=== PATIENT | male | born 1960 | race Caucasian/White ===

== ENCOUNTER 2017-03-23 15:53 | Emergency (ER) | payer OTHER ==
[2017-03-23] MEDS ORDERED: Sodium Chloride 0.9% 10 ML Syringe FLUSH PRN (16:11)
[2017-03-23] MEDS ORDERED: Ondansetron 4 MG/2 ML SDV IVPUSH ONE (16:11)
[2017-03-23] MEDS ORDERED: Sodium Chloride 0.9% 1,000 ML IV STA (16:11)
[2017-03-23] MEDS ORDERED: HYDROmorphone 0.5 MG/0.5 ML Syringe IVPUSH ONE ×2 (16:14→17:27)
[2017-03-23] MEDS ORDERED: HYDROmorphone 0.5 MG/0.5 ML Syringe ONE (16:38)
[2017-03-23] MEDS ORDERED: Ondansetron 4 MG/2 ML SDV ONE (16:38)
[2017-03-23] MEDS ORDERED: Sodium Chloride 0.9% 1,000 ML ONE (16:38)
--- NOTE | 2017-03-23 16:41 | EDM.PDOC ---
ED HPI GENERAL MEDICAL PROBLEM - General Chief Complaint: Abdominal Pain Stated Complaint: LEFT SIDE ABDOMINAL PAIN Time Seen by Provider: 03/23/17 16:03 Source of Information: Reports: Patient, Family History Limitations: Reports: No Limitations - History of Present Illness INITIAL COMMENTS - FREE TEXT/NARRATIVE: The patient presents with left lower abdominal pain. The patient says he had an episode this weekend and it went away. Today the pain came back at 2pm and it is constant and severe. He has no nausea or vomiting with it. He has no diarrhea, dysuria or hematuria. He has no fever, chills, cough, headache, chest pain or shortness of breath. He has a history of HTN. He still has his gallbladder and appendix. He has a history of kidney stones but this is feels different. Onset: Gradual Duration: Hour(s): (2pm) Location: Reports: Abdomen (Left lower abdomen) Quality: Reports: Sharp Severity: Moderate Improves with: Reports: None Worsens with: Reports: None Associated Symptoms: Reports: No Other Symptoms Left Abdominal Pain Score (Numeric/FACES): 8 - Related Data Allergies Allergy/AdvReac Type Severity Reaction Status Date / Time No Known Allergies Allergy Verified 03/23/17 16:05 Home Meds: Home Meds Montelukast Sodium [Singulair] 10 mg PO BEDTIME 08/14/14 [History] Nebivolol HCl [Bystolic] 10 mg PO DAILY 08/14/14 [History] Multivitamin [Daily Multiple Vitamin] 1 tab PO DAILY 03/23/17 [History] Omeprazole/Sodium Bicarbonate [Zegerid 20 MG] 0 mg PO BEDTIME 03/23/17 [History] Tamsulosin HCl [Flomax] 0.4 mg PO DAILY #10 cap.er.24h 03/23/17 [Rx] oxyCODONE HCl/Acetaminophen [Percocet 5-325 mg Tablet] 1 - 2 each PO Q6HR PRN # 20 tablet 03/23/17 [Rx] Past Medical History Cardiovascular History: Reports: Hypertension Other Respiratory History: seasonal allergies Genitourinary History: Reports: Renal Calculus - Infectious Disease History Infectious Disease History: Reports: Chicken Pox Social & Family History - Tobacco Use Smoking Status *Q: Never Smoker Second Hand Smoke Exposure: No - Caffeine Use Caffeine Use: Reports: Coffee - Recreational Drug Use Recreational Drug Use: No ED ROS GENERAL - Review of Systems Review Of Systems: See Below Constitutional: Reports: No Symptoms HEENT: Reports: No Symptoms Respiratory: Reports: No Symptoms Cardiovascular: Reports: No Symptoms Endocrine: Reports: No Symptoms GI/Abdominal: Reports: Abdominal Pain. Denies: Diarrhea, Nausea, Vomiting : Reports: No Symptoms Musculoskeletal: Reports: No Symptoms Skin: Reports: No Symptoms ED EXAM, GI/ABD - Physical Exam Exam: See Below Exam Limited By: No Limitations General Appearance: Alert, No Apparent Distress Ears: Normal External Exam Nose: Normal Inspection Head: Atraumatic, Normocephalic Neck: Normal Inspection Respiratory/Chest: No Respiratory Distress, Lungs Clear, Normal Breath Sounds Cardiovascular: Regular Rate, Rhythm, No Edema, No Murmur GI/Abdominal Exam: Soft, No Organomegaly, No Mass, Tender (Moderate to the left lower abdomen) Course - Vital Signs Last Recorded V/S: Last Vital Signs Temp 96.3 F 03/23/17 16:00 Pulse 65 03/23/17 17:35 Resp 18 03/23/17 17:35 BP 144/79 H 03/23/17 17:35 Pulse Ox 99 03/23/17 17:35 - Orders/Labs/Meds Orders: Active Orders 24 hr Category Date Time Status Peripheral IV Care [RC] . DIRECTED Care 03/23/17 16:11 Active Sodium Chloride 0.9% [Saline Flush] Med 03/23/17 16:11 Active 10 ml FLUSH ASDIRECTED PRN ED Antiemetic Medication Reflex [OM.PC] Stat Oth 03/23/17 16:11 Ordered Peripheral IV Insertion Adult [OM.PC] Stat Oth 03/23/17 16:11 Ordered Medication Orders Sodium Chloride (Saline Flush) 10 ml FLUSH ASDIRECTED PRN PRN Reason: Keep Vein Open Last Admin: 03/23/17 17:55 Dose: 10 ml Labs: Laboratory Tests 03/23/17 03/23/17 03/23/17 Range/Units 16:55 16:55 18:10 WBC 8.64 (4.23-9.07) K/mm3 RBC 4.47 L (4.63-6.08) M/mm3 Hgb 14.5 (13.7-17.5) gm/L Hct 41.5 (40.1-51.0) % MCV 92.8 H (79.0-92.2) fl MCH 32.4 H (25.7-32.2) pg MCHC 34.9 (32.2-35.5) g/dl RDW Std Deviation 44.9 H (35.1-43.9) fL Plt Count 232 (163-337) K/mm3 MPV 10.4 (9.4-12.3) fl Neut % (Auto) 53.3 (34.0-67.9) % Lymph % (Auto) 30.8 (21.8-53.1) % Cobb % (Auto) 12.2 (5.3-12.2) % Eos % (Auto) 3.2 (0.8-7.0) Baso % (Auto) 0.3 (0.1-1.2) % Neut # (Auto) 4.60 (1.78-5.38) K/mm3 Lymph # (Auto) 2.66 (1.32-3.57) K/mm3 Cobb # (Auto) 1.05 H (0.30-0.82) K/mm3 Eos # (Auto) 0.28 (0.04-0.54) K/mm3 Baso # (Auto) 0.03 (0.01-0.08) K/mm3 Sodium 143 (136-145) mEq/L Potassium 4.0 (3.5-5.1) mEq/L Chloride 106 (98-107) mEq/L Carbon Dioxide 27 (21-32) mEq/L Anion Gap 14.0 (5-15) BUN 22 H (7-18) mg/dL Creatinine 1.4 H (0.7-1.3) mg/dL Est Cr Clr Drug Dosing 65.44 mL/min Estimated GFR (MDRD) 53 (>60) mL/min BUN/Creatinine Ratio 15.7 (14-18) Glucose 99 (74-106) mg/dL Calcium 9.3 (8.5-10.1) mg/dL Total Bilirubin 0.2 (0.2-1.0) mg/dL AST 21 (15-37) U/L ALT 29 (16-63) U/L Alkaline Phosphatase 55 (46-116) U/L Total Protein 7.6 (6.4-8.2) g/dl Albumin 3.5 (3.4-5.0) g/dl Globulin 4.1 gm/dL Albumin/Globulin Ratio 0.9 L (1-2) Lipase 194 (73-393) U/L Urine Color Yellow (Yellow) Urine Appearance Clear (Clear) Urine pH 6.0 (5.0-8.0) Ur Specific [place] 1.025 (1.005-1.030) Urine Protein 1+ H (Negative) Urine Glucose (UA) Negative (Negative) Urine Ketones Negative (Negative) Urine Occult Blood 3+ H (Negative) Urine Nitrite Negative (Negative) Urine Bilirubin Negative (Negative) Urine Urobilinogen 0.2 (0.2-1.0) Ur Leukocyte Esterase Negative (Negative) Urine RBC >100 H (0-5) /hpf Urine WBC 0-5 (0-5) /hpf Ur Epithelial Cells Not seen (0-5) /hpf Urine Bacteria Rare (FEW) /hpf Urine Mucus Moderate H (FEW) /hpf Meds: Medications Generic Name Dose Route Start Last Admin Trade Name Freq PRN Reason Stop Dose Admin Sodium Chloride 10 ml 03/23/17 16:11 03/23/17 17:55 Saline Flush FLUSH 10 ml ASDIRECTED PRN Administration Keep Vein Open Discontinued Medications Generic Name Dose Route Start Last Admin Trade Name Freq PRN Reason Stop Dose Admin Diatrizoate Meglum/Diatrizoate Sod 90 ml 03/23/17 16:43 03/23/17 17:55 Gastrografin 37% PO 03/23/17 16:44 90 ml ONETIME ONE Administration Hydromorphone HCl Confirm 03/23/17 16:38 Dilaudid Administered 03/23/17 16:39 Dose 0.5 mg .ROUTE .STK-MED ONE Hydromorphone HCl 0.5 mg 03/23/17 16:14 Dilaudid IVPUSH 03/23/17 16:15 ONETIME ONE Hydromorphone HCl 1 mg 03/23/17 17:22 Dilaudid IVPUSH 03/23/17 17:23 ONETIME ONE Hydromorphone HCl 0.5 mg 03/23/17 17:27 03/23/17 17:25 Dilaudid IVPUSH 03/23/17 17:28 0.5 mg ONETIME ONE Administration Sodium Chloride Confirm 03/23/17 16:38 Normal Saline Administered 03/23/17 16:39 Dose 1,000 mls @ as directed .ROUTE .STK-MED ONE Sodium Chloride 1,000 mls @ 1,000 mls/hr 03/23/17 16:11 Normal Saline IV 03/23/17 17:10 .BOLUS STA Iopamidol 125 ml 03/23/17 16:43 03/23/17 17:55 Isovue-300 (61%) IVPUSH 03/23/17 16:44 125 ml ONETIME ONE Administration Metoclopramide HCl 10 mg 03/23/17 17:46 03/23/17 17:49 Reglan IVPUSH 03/23/17 17:47 10 mg ONETIME ONE Administration Ondansetron HCl Confirm 03/23/17 16:38 Zofran Administered 03/23/17 16:39 Dose 4 mg .ROUTE .STK-MED ONE Ondansetron HCl 4 mg 03/23/17 16:11 Zofran IVPUSH 03/23/17 16:12 ONETIME ONE Sodium Chloride 10 ml 03/23/17 16:43 Saline Flush FLUSH 03/23/17 16:44 ONETIME ONE - Re-Assessments/Exams Free Text/Narrative Re-Assessment/Exam: 03/23/17 16:24 I ordered an IV NS 1L bolus, zofran 4mg IV, dilaudid 1mg IV, labs, UA and a CT of his abdomen and pelvis. 03/23/17 18:48 His WBC looks good. His creatinine was elevated at 1.4. His UA shows blood. His CT shows left sided hydronephrosis caused by a proximal left ureteral stone measuring 4.7mm and located slightly past the UPJ. Several small nonobstructing calculi within the left kidney. He feels better. I will discharge him home. Departure - Departure Time of Disposition: 06:50 Disposition: Home, Self-Care 01 Condition: Good Clinical Impression: Ureteral calculi, Kidney stone on left side - Discharge Information Prescriptions: oxyCODONE HCl/Acetaminophen [Percocet 5-325 mg Tablet] 1 - 2 each PO Q6HR PRN # 20 tablet PRN Reason: Pain Tamsulosin HCl [Flomax] 0.4 mg PO DAILY #10 cap.er.24h Referrals: Sima Boyd PA-C [Primary Care Provider] - Scooby Evans MD [Physician] - 1 Week Forms: ED Department Discharge Additional Instructions: Drink plenty of fluids. Take the flomax daily. Take the percocet 1 to 2 pills every 6 hours as needed for pain. Follow up with Dr Evans or one of his partners within 1 week. Please return if you are worse. - My Orders Last 24 Hours: My Active Orders 03/23/17 16:11 Peripheral IV Care [RC] . DIRECTED Sodium Chloride 0.9% [Saline Flush] 10 ml FLUSH ASDIRECTED PRN ED Antiemetic Medication Reflex [OM.PC] Stat Peripheral IV Insertion Adult [OM.PC] Stat - Assessment/Plan Last 24 Hours: My Active Orders 03/23/17 16:11 Peripheral IV Care [RC] . DIRECTED Sodium Chloride 0.9% [Saline Flush] 10 ml FLUSH ASDIRECTED PRN ED Antiemetic Medication Reflex [OM.PC] Stat Peripheral IV Insertion Adult [OM.PC] Stat
[2017-03-23] MEDS ORDERED: Iopamidol 612 MG/ML 150 ML Bottle IVPUSH ONE (16:43)
[2017-03-23] MEDS ORDERED: Sodium Chloride 0.9% 10 ML Syringe FLUSH ONE (16:43)
[2017-03-23] MEDS ORDERED: Diatrizoate Meglumine/Diatrizoate Sodium 37% 120 ML Bottle PO ONE (16:43)
[2017-03-23] MEDS ORDERED: HYDROmorphone 1 MG/ML Syringe IVPUSH ONE (17:22)
[2017-03-23 17:36] VITALS: BP 144/79
[2017-03-23] MEDS ORDERED: Metoclopramide 10 MG/2 ML SDV IVPUSH ONE (17:46)
--- NOTE | 2017-03-23 18:25 | CT ---
CT abdomen and pelvis Technique: Multiple axial sections were obtained from above the dome of the diaphragm inferiorly through the pubic symphysis. Intravenous and oral contrast has been utilized. Delayed images were also obtained through the abdomen and pelvis. Comparison: No prior abdominal imaging. Findings: Mild hydronephrosis is noted of the left kidney. This finding is caused by an obstructing stone within the proximal left ureter located slightly past the UPJ measuring approximate 4.7 mm. Left kidney shows mild surrounding inflammatory change compatible with the obstruction as well as lack of excretion of contrast on delayed images. Several very small nonobstructing calculi are seen within the left kidney. Right ureter shows no dilatation. Small portion of the visualized lung bases shows nothing acute. Liver shows no focal parenchymal abnormality. Spleen appears within normal limits. Adrenal glands show no nodule. Pancreas is within normal limits. Aorta shows no aneurysmal dilatation. No retroperitoneal adenopathy or mesenteric abnormalities are seen. No pelvic mass or adenopathy is seen. Mild diverticulosis is noted within the sigmoid colon without inflammatory change of diverticulitis being seen. Appendix is felt to be seen and appears within normal limits. No bowel dilatation is seen. Impression: 1. Left-sided hydronephrosis caused by a proximal left ureteral stone measuring 4.7 mm and located slightly past the UPJ. 2. Several small nonobstructing calculi within left kidney. 3. Other incidental findings. Diagnostic code #3
== END 2017-03-23 19:08 | disposition home or self-care (01) ==
LOC: JD.ED 15:53
DX: N13.2 Hydronephrosis with renal and ureteral calculous obstruction (principal); I10 Essential (primary) hypertension
CPT/HCPCS: 36415; 74177; 80053; 81001; 83690; 85025; 96361; 96374; 96375; 96376; 99284; J1170; J2765; J7050; Q9963; Q9967